=== PATIENT | female | born 1995 | race American Indian/Alaskan Native ===

== ENCOUNTER 2017-01-07 08:59 | Outpatient (CLI) | payer BC, MEDICAID ==
--- NOTE | 2017-01-07 12:14 | Fluoroscopy Report ---
Air-contrast upper GI: History: Dysphagia reflux disease. Findings: Transit of barium through the esophagus appears normal. No hiatal hernia. Mild reflux. Normal stomach with normal gastric emptying. No ulceration. No extrinsic or intrinsic filling defects. Impression: Mild reflux. No hiatal hernia. No evidence of ulceration.
== END 2017-01-07 09:00 | disposition home or self-care (01) ==
LOC: FLUORO 08:59
PROVIDERS: ATTEND Surgery
DX: Z01.818 Encounter for other preprocedural examination (principal); K21.9 Gastro-esophageal reflux disease without esophagitis; E66.01 Morbid (severe) obesity due to excess calories
CPT/HCPCS: 74247

== ENCOUNTER 2017-11-20 09:22 | Emergency (ER) | payer BC ==
[2017-11-20 09:49] VITALS: BP 133/80
[2017-11-20] MEDS ORDERED: MOTRIN PO ONE (10:00)
--- NOTE | 2017-11-20 10:00 | Emergency Department Report ---
ED Lower Extremity HPI - General Chief Complaint: Extremity Injury, Lower Stated Complaint: MEDICAL CLEARENCE/RIGHT FOOT PAIN Time Seen by Provider: 11/20/17 09:52 Source: patient Mode of arrival: Ambulatory Limitations: No Limitations - History of Present Illness Initial Comments: This is a 22-year-old female nontoxic, well nourished in appearance, no acute signs of distress presents to the ED with c/o of right ankle pain and swelling x1 day. Patient stated this morning for him she got on her right ankle times one. Patient denies any numbness, tingling, fever, chills, nausea, vomiting, headache or stiff neck, chest pain shortness of breath. Patient denies any other trauma. Patient denies any allergies or significant past medical history. MD Complaint: ankle injury -: This morning Injury: Ankle: Right Type of Injury: blunt Severity: mild Severity scale (0 -10): 8 Improves With: immobilization Worsens With: movement Associated Symptoms: swelling, able to partially bear weight, ambulatory. denies: snap/pop sensation, numbness, tingling, unable to bear weight - Related Data Home Medications Medication Instructions Recorded Confirmed Last Taken Pnv,Calcium 72/Iron/Folic Acid 1 tab PO QDAY 01/22/16 05/10/16 04/16/15 09:00 [Pnv Plus Multivit Tab] 1 tab Previous Rx's Medication Instructions Recorded Last Taken Type Ibuprofen [Motrin] 600 mg PO Q8H PRN #30 tablet 11/20/17 Unknown Rx Allergies Allergy/AdvReac Type Severity Reaction Status Date / Time No Known Allergies Allergy Verified 11/20/17 09:45 ED Review of Systems ROS: Stated complaint: MEDICAL CLEARENCE/RIGHT FOOT PAIN Other details as noted in HPI Constitutional: denies: chills, fever Eyes: denies: eye pain, eye discharge, vision change ENT: denies: ear pain, throat pain Respiratory: denies: cough, shortness of breath, wheezing Cardiovascular: denies: chest pain, palpitations Endocrine: no symptoms reported Gastrointestinal: denies: abdominal pain, nausea, diarrhea Genitourinary: denies: urgency, dysuria, discharge Musculoskeletal: arthralgia. denies: back pain, joint swelling Skin: denies: rash, lesions Neurological: denies: headache, weakness, paresthesias Psychiatric: denies: anxiety, depression Hematological/Lymphatic: denies: easy bleeding, easy bruising ED Past Medical Hx - Past Medical History Hx Hypertension: No Hx Heart Attack/AMI: No Hx Congestive Heart Failure: No Hx Diabetes: No Hx Deep Vein Thrombosis: No Hx Renal Disease: No Hx Sickle Cell Disease: No Hx Seizures: No Hx Asthma: No Hx COPD: No Hx HIV: No Additional medical history: Anemia - Surgical History Hx Appendectomy: Yes Additional Surgical History: spinal fusion at 15 yrs old for scoliosis - Social History Smoking Status: Never Smoker Substance Use Type: None - Medications Home Medications: Home Medications Medication Instructions Recorded Confirmed Last Taken Type Pnv,Calcium 72/Iron/Folic Acid 1 tab PO QDAY 01/22/16 05/10/16 04/16/15 09:00 History [Pnv Plus Multivit Tab] 1 tab Ibuprofen [Motrin] 600 mg PO Q8H PRN #30 tablet 11/20/17 Unknown Rx ED Physical Exam - General Limitations: No Limitations General appearance: alert, in no apparent distress - Head Head exam: Present: atraumatic, normocephalic - Eye Eye exam: Present: normal appearance, PERRL, EOMI Pupils: Present: normal accommodation - ENT ENT exam: Present: normal exam, normal orophraynx, mucous membranes moist, TM's normal bilaterally, normal external ear exam - Neck Neck exam: Present: normal inspection, full ROM. Absent: tenderness, meningismus, lymphadenopathy, thyromegaly - Respiratory Respiratory exam: Present: normal lung sounds bilaterally. Absent: respiratory distress, wheezes, rales, rhonchi, stridor, chest wall tenderness, accessory muscle use, decreased breath sounds, prolonged expiratory - Cardiovascular Cardiovascular Exam: Present: regular rate, normal rhythm, normal heart sounds. Absent: irregular rhythm, systolic murmur, diastolic murmur, rubs, gallop - GI/Abdominal GI/Abdominal exam: Present: soft, normal bowel sounds. Absent: distended, tenderness, guarding, rebound, rigid, diminished bowel sounds - Extremities Exam Extremities exam: Present: normal inspection, full ROM, tenderness, normal capillary refill. Absent: pedal edema, joint swelling, calf tenderness - Expanded Lower Extremity Exam Right Hip exam: Present: normal inspection, full ROM Upper Leg exam: Present: normal inspection, full ROM Knee exam: Present: normal inspection, full ROM Lower Leg exam: Present: normal inspection, full ROM Ankle exam: Present: normal inspection, full ROM, tenderness, swelling. Absent : abrasion, laceration, ecchymosis, deformity, crepidus, dislocation, erythema, anterior draw sign Foot/Toe exam: Present: normal inspection, full ROM. Absent: tenderness, swelling, abrasion, ecchymosis, deformity, crepidus, dislocation, erythema, amputation, puncture wound, foreign body, calcaneal tenderness, tenderness at base of 5th metatarsal, nail avulsion, subungual hematoma Neuro vascular tendon exam: Present: no vascular compromise. Absent: pulse deficit, abnormal cap refill, motor deficit, sensory deficit, tendon deficit, extremity cold to touch, pallor, abnormal 2-point discrimination, decreased fine /light touch, foot drop, peroneal nerve deficit, significant pain with passive ROM of distal joint Gait: Positive: observed and limited by pain 1 - pain with swelling - Back Exam Back exam: Present: normal inspection, full ROM. Absent: tenderness, CVA tenderness (R), CVA tenderness (L), muscle spasm, paraspinal tenderness, vertebral tenderness, rash noted - Neurological Exam Neurological exam: Present: alert, oriented X3, CN II-XII intact, normal gait, reflexes normal - Psychiatric Psychiatric exam: Present: normal affect, normal mood - Skin Skin exam: Present: warm, dry, intact, normal color. Absent: rash ED Course Vital Signs 11/20/17 11/20/17 09:45 10:32 Temperature 98.2 F Pulse Rate 100 H Respiratory 18 16 Rate Blood Pressure 133/80 O2 Sat by Pulse 100 Oximetry - Reevaluation(s) Reevaluation #1: 11/20/17 09:58 Patient is speaking in full sentences with no signs of distress noted. ED Lower Extremity MDM - Medical Decision Making This is a 22-year-old female that presents with right ankle sprain. Patient is stable and was examined by me. X-ray has been obtained and dictated by radiologist within normal limits. Patient is notified of x-ray results with no past noted by the patient. Patient received rice therapy in the ED. Patient also received Motrin and ankle stirrup in the ED. Patient was instructed and referred to Follow-up with a orthopedic doctor in 3-5 days or if symptoms worsen and continue return to emergency room as soon as possible. Patient is in custody with the police and is going to long term, as per officer. At time of discharge, the patient does not seem toxic or ill in appearance. No acute signs of distress noted. Patient agrees to discharge treatment plan of care. No further questions noted by the patient. Critical care attestation.: If time is entered above; I have spent that time in minutes in the direct care of this critically ill patient, excluding procedure time. ED Disposition Clinical Impression: Right ankle sprain Qualifiers: Encounter type: initial encounter Involved ligament of ankle: unspecified ligament Qualified Code(s): S93.401A - Sprain of unspecified ligament of right ankle, initial encounter Disposition: TO HOME OR SELFCARE Is pt being admited?: No Does the pt Need Aspirin: No Condition: Stable Instructions: Ankle Sprain (ED), Ankle Stirrup Splint (ED), RICE Therapy (ED) Additional Instructions: Follow-up with a orthopedic doctor in 3-5 days or if symptoms worsen and continue return to emergency room as soon as possible. Prescriptions: Ibuprofen [Motrin] 600 mg PO Q8H PRN #30 tablet PRN Reason: Pain Referrals: PRIMARY CAREMD [Primary Care Provider] - 3-5 Days HENRI ALEJANDRO MD [Staff Physician] - 3-5 Days [facility] [Outside] - 3-5 Days [facility] [Outside] - 3-5 Days
--- NOTE | 2017-11-20 10:37 | XRay Report ---
Right ankle 3 views: History: Pain and swelling. Findings: No bony or articular abnormality. No fracture dislocation or soft tissue calcification. Impression: Essentially negative right ankle.
== END 2017-11-20 11:00 | disposition home or self-care (01) ==
LOC: ED 09:22
DX: S93.491A Sprain of other ligament of right ankle, initial encounter (principal); X50.0XXA Overexertion from strenuous movement or load, initial encounter; Y93.89 Activity, other specified; Y92.89 Other specified places as the place of occurrence of the external cause; Y99.8 Other external cause status

== ENCOUNTER 2019-04-01 21:02 | Emergency (ER) | payer BC, MEDICAID ==
[2019-04-01 22:04] LABS: HCG Qualitative,Urine Negative (Negative)
--- NOTE | 2019-04-01 22:14 | Emergency Department Report ---
ED Back Pain/Injury HPI - General Chief Complaint: Back Pain/Injury Stated Complaint: GATE FELL ON BACK/ BACK/CHEST PAIN Time Seen by Provider: 04/01/19 22:07 Source: patient Limitations: No Limitations - History of Present Illness Initial Comments: Patient is a 23-year-old female who comes to the ER today after having a gait fall on her back while she was at work. She has had previous back surgery and she wanted to make sure that her back was okay. She is ambulatory with no focal deficit in the ER. - Related Data Home Medications Medication Instructions Recorded Confirmed Last Taken Pnv,Calcium 72/Iron/Folic Acid 1 tab PO QDAY 01/22/16 09/15/18 2 Days Ago [Pnv Plus Multivit Tab] ~09/13/18 Previous Rx's Medication Instructions Recorded Last Taken Type Ibuprofen [Motrin] 800 mg PO Q8HR PRN #25 tablet 04/01/19 Unknown Rx Allergies Allergy/AdvReac Type Severity Reaction Status Date / Time No Known Allergies Allergy Verified 11/20/17 09:45 ED Review of Systems ROS: Stated complaint: GATE FELL ON BACK/ BACK/CHEST PAIN Other details as noted in HPI Comment: All other systems reviewed and negative ED Past Medical Hx - Past Medical History Anemia ED Back Pain Physical Exam - Exam General: Vital signs noted. No distress. Alert and acting appropriately. WDWN patient in NAD VS per RN flow sheet Alert and oriented to person, place and time. S1-S2. No S3 or S4. No systolic or diastolic murmur. No JVD. No pitting edema. Lungs clear to auscultation bilaterally anteriorly and posteriorly. Abdomen soft nontender bowel sounds X4 Moves all extremities well. Mood and affect appropriate. ED Course Vital Signs 04/01/19 21:23 Temperature 98.5 F Pulse Rate 98 H Respiratory 18 Rate Blood Pressure 126/71 O2 Sat by Pulse 98 Oximetry Ed Back Pain Tests - Tests Tests: Normal X Rays ED Medical Decision Making - Radiology Data Radiology results: report reviewed, image reviewed - Medical Decision Making NEURO INTACT NO ABRASION/CONTUSION/LAC XRAY NORMAL DC HOME WITH OUTPT FOLLOW UP Vital Signs 04/01/19 21:23 Temperature 98.5 F Pulse Rate 98 H Respiratory 18 Rate Blood Pressure 126/71 O2 Sat by Pulse 98 Oximetry Critical care attestation.: If time is entered above; I have spent that time in minutes in the direct care of this critically ill patient, excluding procedure time. ED Disposition Clinical Impression: Contusion, Back pain Disposition: TO HOME OR SELFCARE Is pt being admited?: No Does the pt Need Aspirin: No Condition: Stable Instructions: Contusion in Adults (ED) Additional Instructions: DIET TOLERATED MEDS ORDERED TODAY IN ER FOLLOW INSTRUCTIONS ON THE BOTTLE FOLLOW UP PCP WITHIN 48 HOURS TO ENSURE YOU ARE GETTING BETTER ACTIVITY TOLERATED MOTRIN OR TYLENOL FOR PAIN OR FEVER RETURN TO THE ER FOR WORSENING SYMPTOMS NOT RELIEVED BY YOUR MEDICATIONS. Prescriptions: Ibuprofen [Motrin] 800 mg PO Q8HR PRN #25 tablet PRN Reason: Pain , Severe (7-10) Referrals: HENRI ALEJANDRO MD [Staff Physician] - 3-5 Days Time of Disposition: 23:25
--- NOTE | 2019-04-01 23:14 | XRay Report ---
CERVICAL SPINE 4 VIEWS THORACIC SPINE 3 VIEWS INDICATION: pain r/t injury- h/o spinal fusion. COMPARISON: No relevant prior imaging study available. FINDINGS: Cervical spine: No acute fracture or subluxation is seen, there is no prevertebral soft tissue swelli ng. No significant degenerative changes. Thoracic spine: Yoni rods are noted throughout with multilevel transpedicular screw fixation. [employer] in expected position. No acute fracture or subluxation is seen. IMPRESSION: 1. No acute findings. Signer Name: Jasen Tes MD Signed: 04/01/2019 11:10 PM Workstation Name: [id number]
[2019-04-02 01:10] VITALS: BP 130/84
== END 2019-04-02 01:10 | disposition home or self-care (01) ==
LOC: ED 21:02
DX: S30.0XXA Contusion of lower back and pelvis, initial encounter (principal); Z79.1 Long term (current) use of non-steroidal anti-inflammatories (NSAID); Z86.2 Personal history of diseases of the blood and blood-forming organs and certain disorders involving the immune mechanism; W18.39XA Other fall on same level, initial encounter; Y93.89 Activity, other specified; Y92.69 Other specified industrial and construction area as the place of occurrence of the external cause; Y99.8 Other external cause status
CPT/HCPCS: 72040; 72070; 81025; 99283

== ENCOUNTER 2019-12-10 10:05 | Outpatient (CLI) | payer OTHER ==
--- NOTE | 2019-12-10 10:41 | XRay Report ---
XR spine lumbosacral 2-3V INDICATION / CLINICAL INFORMATION: BACK PAIN. COMPARISON: Thoracic spine radiographs on 04/01/2019. FINDINGS: BONES/JOINT(S): No acute fracture or subluxation. No significant degenerative changes. Spinal fixatio n rods in the lower thoracic and upper lumbar spine appear unchanged. SOFT TISSUES: No significant abnormality. ADDITIONAL FINDINGS: None. Signer Name: John Meredith MD Signed: 12/10/2019 10:37 AM Workstation Name: [id number]
== END 2019-12-10 10:06 | disposition home or self-care (01) ==
LOC: XRAY 10:05
PROVIDERS: ATTEND Internal Medicine
DX: M54.5 Low back pain (principal)
CPT/HCPCS: 72100